=== PATIENT | male | born 1975 | race Caucasian/White ===

== ENCOUNTER 2022-12-04 04:16 | Emergency (ER) | payer OTHER, SELFPAY ==
[2022-12-04] VITALS (7 sets, daily range): BP systolic 120–146; BP diastolic 70–99; PULSE 80–112; RESP 17–18; TEMP 36.8; O2SAT 98–99; BMI 34.0
--- NOTE | 2022-12-04 04:38 | ECG_ITS ---
APPROVED REPORT Exam: Resting ECG HR:106 bpm ECG Measurements Heart Rate 106 AXES TN 184 P 51 QRSd 93 QRS 69 QT 320 T -3 QTc 382 Conclusion SINUS TACHYCARDIA NONSPECIFIC T-WAVE ABNORMALITY ABNORMAL ECG UNCONFIRMED REPORT Electronically signed by : Aleksandr Valencia MD 12/05/2022 12:34:59
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
[2022-12-04 05:06] LABS: Basophils # 0.1 K/mm3 (0-0.2); Basophils % 0.9 % (0.1-2.0); Eosinophils # 0.2 K/mm3 (0.0-0.4); Eosinophils % 1.5 % (0.1-12.0); Hematocrit 45.4 % (42.0-52.0); Hemoglobin 15.7 g/dL (14.1-18.0); Lymphocytes # 3.2 K/mm3 (0.7-4.5); Lymphocytes % 30.4 % (10-50); Mean Corpuscular HGB Conc 34.5 g/dL (31.8-35.4); Mean Corpuscular Hemoglobin 29.7 pg (27.0-31.2); Mean Corpuscular Volume 86.1 fl (80-94); Mean Platelet Volume 7.5 fl (7.4-10.4); Monocytes # 1.1 K/mm3 (0.1-1.0); Monocytes % 10.3 % (1.7-9.3); Neutrophils # 6.1 K/mm3 (1.8-7.8); Platelet Count 321 K/mm3 (142-424); Red Blood Count 5.27 M/mm3 (4.60-6.20); Red Cell Distribution Width 12.9 % (11.5-17.5); White Blood Count 10.7 K/mm3 (4.8-10.8)
[2022-12-04 05:12] LABS: Chloride 102 mmol/L (98-107); Sodium 140 mmol/L (136-145)
[2022-12-04 05:13] LABS: Potassium 4.5 mmoL/L (3.5-5.1)
[2022-12-04 05:15] LABS: Alanine Aminotransferase 40 U/L (12-78); Albumin/Globulin Ratio 1.3 (1.1-1.8); Alkaline Phosphatase 90 U/L (38-126); Anion Gap 19.5 mEq/L (5-15); Aspartate Amino Transferase 49 U/L (17-59); Bilirubin,Total 0.8 mg/dl (0.2-1.3); Blood Urea Nitrogen 20 mg/dl (9-20); Carbon Dioxide 23 mmol/L (22.0-30.0); Creatinine Clearance Estimated 117 mL/min (50-200); Estimated Glomerular Filt Rate 54 ml/min (>60); GFR (African American) 66 ML/MIN (>60); Globulin 3.9 g/dL (1.3-3.2); Total Protein,Serum 8.9 g/dl (6.3-8.2)
[2022-12-04 05:16] LABS: Calcium 9.7 mg/dl (8.4-10.2); Glucose 112 mg/dl (74-100); Lipase 71 U/L (23-300)
[2022-12-04 05:19] LABS: INR 0.99 (0.9-1.1); Prothrombin Time 10.7 seconds (10.1-12.5)
--- NOTE | 2022-12-04 05:49 | PC.NURSE ---
Rounded on pt. No needs voiced at this time.
[2022-12-04 05:54] LABS: Troponin I 0.01 ng/ml (0.00-0.034)
--- NOTE | 2022-12-04 06:35 | PC.NURSE ---
Pt position ajusted to sitting on side of bed, family at bedside, updated on wait for CT, pt pain under control, no needs at this time
--- NOTE | 2022-12-04 07:42 | PC.NURSE ---
Called radiology to check with [facility] regarding awaiting reads.
--- NOTE | 2022-12-04 07:54 | PC.NURSE ---
Alvarado bowman notified ER that the CT's are all completed however one must open the images to see the report.
== END 2022-12-04 08:18 | disposition home or self-care (01) ==
PROVIDERS: Emergency Provider Emergency Medicine
DX: M54.2 Cervicalgia (principal); S20.219A Contusion of unspecified front wall of thorax, initial encounter; R00.0 Tachycardia, unspecified; N28.9 Disorder of kidney and ureter, unspecified; V86.95XA Unspecified occupant of 3- or 4- wheeled all-terrain vehicle (ATV) injured in nontraffic accident, initial encounter
CPT/HCPCS: 70450; 70496; 70498; 71275; 72125; 74174; 80053; 83690; 84484; 85025; 85610; 93005; 96360; 99285; Q9967